=== PATIENT | female | born 1935 | race Caucasian/White ===

== ENCOUNTER 2017-11-09 20:57 | Inpatient (IN) | payer MEDICARE ==
[~2017-11-09] VITALS: Ht 167.6 cm; Wt 55.0 kg
[2017-11-09] MEDS ORDERED: SODIUM CHLORIDE FLUSH 10ML SYR IVF ONE (21:30)
[2017-11-09] MEDS ORDERED: MORPHINE SULFATE 4 MG/ML, 1ML IVPush PRN (21:30)
[2017-11-09] MEDS ORDERED: ONDANSETRON 2MG/ML, 2ML IVPush ONE (21:30)
[2017-11-09 21:46] LABS: BASOPHILS # (AUTO) 0.02 x10^3/uL (0-0.1); BASOPHILS % (AUTO) 0 % (0-1); EOSINOPHILS # (AUTO) 0.06 x10^3/uL (0-0.4); EOSINOPHILS % (AUTO) 1 % (1-7); LYMPHOCYTES # (AUTO) 0.74 x10^3/uL (1-3.4); LYMPHOCYTES % (AUTO) 11 % (22-44); MD NO; MEAN CORPUSCULAR HEMOGLOBIN 29.6 pg (27.0-34.8); MEAN CORPUSCULAR HGB CONC 33.3 g/dL (32.4-35.8); MEAN CORPUSCULAR VOLUME 88.9 fL (80-100); MEAN PLATELET VOLUME 9.1 fL (7.4-10.4); MONOCYTES % (AUTO) 6 % (2-9); NEUTROPHILS # (AUTO) 5.81 x10^3/uL (1.8-6.8); NEUTROPHILS % (AUTO) 83 % (42-75); PLATELET COUNT 233 x10^3/uL (130-400); RED CELL DISTRIBUTION WIDTH 14.4 % (9.6-15.2)
[2017-11-09 21:57] LABS: ALANINE AMINOTRANSFERASE 22 U/L (12-78); ALBUMIN 3.2 g/dL (3.4-5.0); ANION GAP 7 mmol/L (5-15); CALCIUM 8.9 mg/dL (8.5-10.1); CHLORIDE 108 mmol/L (98-107); CREATININE 1.35 mg/dL (0.55-1.02)
[2017-11-09 22:00] LABS: ALKALINE PHOSPHATASE 75 U/L (45-117); BILIRUBIN,TOTAL 0.5 mg/dL (0.2-1.0); TOTAL PROTEIN 7.2 g/dL (6.4-8.2)
[2017-11-09] MEDS ORDERED: ONDANSETRON 2MG/ML, 2ML ONE (22:37)
[2017-11-09] MEDS ORDERED: MORPHINE SULFATE 4 MG/ML, 1ML ONE (22:37)
[2017-11-10] MEDS ORDERED: OXYcodone IR 5MG TABLET PO PRN (01:00)
[2017-11-10] MEDS ORDERED: ENALAPRILAT 1.25 MG/ML, 2ML IVPush PRN (01:00)
[2017-11-10] MEDS ORDERED: ACETAMINOPHEN 325 MG TABLET PO PRN (01:00)
[2017-11-10] MEDS ORDERED: hydrALAzine 20 MG/ML, 1ML IVPush PRN (01:00)
[2017-11-10 01:22] LABS: FREE T4 (FREE THYROXINE) 1.39 ng/dL (0.76-1.46); THYROID STIMULATING HORMONE 3.14 mIU/L (0.358-3.740)
[2017-11-10 01:40] LABS: HEMOGLOBIN A1C 5.5 % (4.2-6.3)
[2017-11-10] MEDS: D5%-0.9% NACL+KCL 20MEQ 1,000 ML IV SCH ×3 (01:56→20:55)
[2017-11-10 05:20] LABS: CULTURE INDICATED? NO; MICROSCOPIC NOT IND
[2017-11-10] MEDS ORDERED: OMNIPAQUE 350 MG/ML, 100ML BOTTLE ONE (06:18)
[2017-11-10 08:14] VITALS: BP 105/63
[2017-11-10 13:01] VITALS: BP 104/71
[2017-11-10 18:57] VITALS: BP 113/68
[2017-11-10] MEDS: ONDANSETRON 2MG/ML, 2ML IVPush PRN (21:13)
[2017-11-10] MEDS: morphine SULFATE 10 MG/ML, 1ML IVPush PRN (21:13)
[2017-11-11 03:00] VITALS: BP 105/65
[2017-11-11] MEDS: morphine SULFATE 10 MG/ML, 1ML IVPush PRN (04:40)
[2017-11-11] MEDS: ONDANSETRON 2MG/ML, 2ML IVPush PRN (04:40)
[2017-11-11] MEDS: D5%-0.9% NACL+KCL 20MEQ 1,000 ML IV SCH (05:03)
[2017-11-11 05:34] LABS: BASOPHILS # (AUTO) 0.04 x10^3/uL (0-0.1); BASOPHILS % (AUTO) 1 % (0-1); EOSINOPHILS # (AUTO) 0.13 x10^3/uL (0-0.4); EOSINOPHILS % (AUTO) 2 % (1-7); LYMPHOCYTES # (AUTO) 1.41 x10^3/uL (1-3.4); LYMPHOCYTES % (AUTO) 26 % (22-44); MD NO; MEAN CORPUSCULAR HEMOGLOBIN 29.4 pg (27.0-34.8); MEAN CORPUSCULAR HGB CONC 33.1 g/dL (32.4-35.8); MEAN CORPUSCULAR VOLUME 88.7 fL (80-100); MEAN PLATELET VOLUME 9.3 fL (7.4-10.4); MONOCYTES # (AUTO) 0.54 x10^3/uL (0.2-0.8); MONOCYTES % (AUTO) 10 % (2-9); NEUTROPHILS # (AUTO) 3.25 x10^3/uL (1.8-6.8); NEUTROPHILS % (AUTO) 61 % (42-75); PLATELET COUNT 198 x10^3/uL (130-400); RED BLOOD COUNT 4.35 x10^6/uL (3.82-5.3); RED CELL DISTRIBUTION WIDTH 13.9 % (9.6-15.2)
[2017-11-11 05:36] LABS: CHLORIDE 113 mmol/L (98-107)
[2017-11-11 05:45] LABS: ALANINE AMINOTRANSFERASE 16 U/L (12-78); ALBUMIN 2.5 g/dL (3.4-5.0); ALKALINE PHOSPHATASE 60 U/L (45-117); ANION GAP 4 mmol/L (5-15); BILIRUBIN,TOTAL 0.3 mg/dL (0.2-1.0); CALCIUM 7.8 mg/dL (8.5-10.1); CHOL/HDL RATIO 2.1; CHOLESTEROL, TOTAL 162 mg/dL (140-239); CREATININE 0.95 mg/dL (0.55-1.02); HDL CHOL % 48 % (28-40); HDL CHOLESTEROL (DIRECT) 78 mg/dL (40-60); LDL CHOLESTEROL,CALCULATED 68 mg/dL (54-169); LDL/HDL RATIO 0.9 (0.5-3.0); TOTAL PROTEIN 5.6 g/dL (6.4-8.2); TRIGLYCERIDES 81 mg/dL (50-200); VLDL CHOLESTEROL 16 mg/dL (0-25)
[2017-11-11 07:11] VITALS: BP 100/56
[2017-11-11 13:34] VITALS: BP 134/60
[2017-11-11 20:31] VITALS: BP 121/70
[2017-11-12 02:00] VITALS: BP 108/62
[2017-11-12 05:28] LABS: ANION GAP 7 mmol/L (5-15); CALCIUM 7.9 mg/dL (8.5-10.1); CHLORIDE 107 mmol/L (98-107); CREATININE 0.88 mg/dL (0.55-1.02)
[2017-11-12 07:26] VITALS: BP 116/72
[2017-11-12 13:11] VITALS: BP 110/60
[2017-11-12] MEDS ORDERED: POLY17PO5 PO (13:26)
== END 2017-11-12 15:28 | disposition home or self-care (01) | DRG 388 ==
LOC: ED 21:51 → EDIP 11-10 00:15 → 4NOR 11-10 01:28
PROVIDERS: ADMIT Internal Medicine; ATTEND Internal Medicine
DX: K56.690 Other partial intestinal obstruction (principal); N17.0 Acute kidney failure with tubular necrosis; E44.0 Moderate protein-calorie malnutrition; Z68.1 Body mass index [BMI] 19.9 or less, adult; K56.2 Volvulus; E87.6 Hypokalemia; K52.9 Noninfective gastroenteritis and colitis, unspecified; K57.90 Diverticulosis of intestine, part unspecified, without perforation or abscess without bleeding; Z87.891 Personal history of nicotine dependence; J02.9 Acute pharyngitis, unspecified; Z88.2 Allergy status to sulfonamides
CPT/HCPCS: 36415; 74177; 74250; 80048; 80053; 80061; 81003; 83036; 83690; 83735; 84100; 84439; 84443; 85025; 96374; 96375; J2405; Q9967; J2270; J3480

== ENCOUNTER 2019-10-01 11:35 | Emergency (ER) | payer MEDICARE ==
[~2019-10-01] VITALS: Ht 162.6 cm; Wt 62.1 kg
[~2019-10-01 11:35] MED LIST: ACET325T14 PO; POLY17PO5 PO; TRAM50TA2 PO
[2019-10-01 11:50] VITALS: BP 123/80
[2019-10-01 12:31] LABS: ALBUMIN 3.6 g/dL (3.4-5.0); ANION GAP 6 mmol/L (5-15); CALCIUM 9.3 mg/dL (8.5-10.1); CHLORIDE 109 mmol/L (98-107)
[2019-10-01 12:43] LABS: BASOPHILS # (AUTO) 0.04 x10^3/uL (0-0.1); BASOPHILS % (AUTO) 1 % (0-1); EOSINOPHILS # (AUTO) 0.12 x10^3/uL (0-0.4); EOSINOPHILS % (AUTO) 2 % (1-7); LYMPHOCYTES # (AUTO) 1.18 x10^3/uL (1-3.4); LYMPHOCYTES % (AUTO) 19 % (22-44); MD NO; MEAN CORPUSCULAR HEMOGLOBIN 29.6 pg (27.0-34.8); MEAN CORPUSCULAR VOLUME 89.7 fL (80-100); MEAN PLATELET VOLUME 9.3 fL (7.4-10.4); MONOCYTES # (AUTO) 0.43 x10^3/uL (0.2-0.8); MONOCYTES % (AUTO) 7 % (2-9); NEUTROPHILS # (AUTO) 4.39 x10^3/uL (1.8-6.8); NEUTROPHILS % (AUTO) 71 % (42-75); PLATELET COUNT 209 x10^3/uL (130-400); RED BLOOD COUNT 4.52 x10^6/uL (3.82-5.3); RED CELL DISTRIBUTION WIDTH 14.4 % (9.6-15.2)
--- NOTE | 2019-10-01 12:43 | NUR ---
PT TO ROOM AT THIS TIME VIA WHEELCHAIR
--- NOTE | 2019-10-01 14:07 | NUR ---
PT ELOPED PRIOR TO RECEIVING WRITTEN DC INSTRUCTIONS.
== END 2019-10-01 14:08 | disposition home or self-care (01) ==
LOC: ED 14:00
DX: R19.7 Diarrhea, unspecified (principal); C76.51 Malignant neoplasm of right lower limb; J44.9 Chronic obstructive pulmonary disease, unspecified; Z87.891 Personal history of nicotine dependence; I45.10 Unspecified right bundle-branch block
CPT/HCPCS: 36415; 80048; 82040; 85025; 93005; 99284

== ENCOUNTER 2020-02-27 18:13 | Emergency (ER) | payer MEDICARE ==
[~2020-02-27] VITALS: Ht 167.6 cm; Wt 135.0 kg
[2020-02-27] MEDS ORDERED: SODIUM CHLORIDE FLUSH 10ML SYR IVF ONE (19:30)
[2020-02-27 19:42] LABS: BASOPHILS # (AUTO) 0.03 x10^3/uL (0-0.1); BASOPHILS % (AUTO) 1 % (0-1); EOSINOPHILS # (AUTO) 0.22 x10^3/uL (0-0.4); EOSINOPHILS % (AUTO) 4 % (1-7); LYMPHOCYTES # (AUTO) 1.25 x10^3/uL (1-3.4); LYMPHOCYTES % (AUTO) 20 % (22-44); MD NO; MEAN CORPUSCULAR HEMOGLOBIN 28.1 pg (27.0-34.8); MEAN CORPUSCULAR HGB CONC 31.5 g/dL (32.4-35.8); MEAN CORPUSCULAR VOLUME 89.1 fL (80-100); MEAN PLATELET VOLUME 8.8 fL (7.4-10.4); MONOCYTES # (AUTO) 0.58 x10^3/uL (0.2-0.8); MONOCYTES % (AUTO) 9 % (2-9); NEUTROPHILS # (AUTO) 4.13 x10^3/uL (1.8-6.8); NEUTROPHILS % (AUTO) 67 % (42-75); PLATELET COUNT 321 x10^3/uL (130-400); RED CELL DISTRIBUTION WIDTH 13.8 % (9.6-15.2)
[2020-02-27 19:51] LABS: ALANINE AMINOTRANSFERASE 26 U/L (12-78); ANION GAP 6 mmol/L (5-15); CHLORIDE 107 mmol/L (98-107); CREATININE 1.36 mg/dL (0.55-1.02)
[2020-02-27 19:53] LABS: ALKALINE PHOSPHATASE 83 U/L (45-117); BILIRUBIN,TOTAL 0.3 mg/dL (0.2-1.0); TOTAL PROTEIN 7.2 g/dL (6.4-8.2)
--- NOTE | 2020-02-27 20:00 | NUR ---
Pt attempted to urinate into bedpan and states she is unable to. Pt straight cathed at this time to obtain urine sample, sent to lab
[2020-02-27 20:13] LABS: MICROSCOPIC NOT IND
--- NOTE | 2020-02-27 20:31 | NUR ---
Pt to CT
--- NOTE | 2020-02-27 21:11 | NUR ---
Pt states she "wants to go home," pt educated on pending results and plan of care at this time
[2020-02-27 21:19] LABS: TROPONIN I < 0.015 ng/mL (0.000-0.045)
--- NOTE | 2020-02-27 21:21 | NUR ---
Pt continues to yell out "get me out of here, i'm fine." Provided education that results are still pending at this time. Comfort of pt ensured, call pearce within reach, VSS
[2020-02-27] MEDS ORDERED: LORazepam 1MG TABLET ONE (21:46)
[2020-02-27] MEDS ORDERED: LORazepam 1MG TABLET PO ONE (22:00)
[2020-02-27 22:04] VITALS: BP 126/88
== END 2020-02-27 22:08 ==
LOC: ED 19:40
DX: G89.11 Acute pain due to trauma (principal); Z20.828 Contact with and (suspected) exposure to other viral communicable diseases; R05 Cough; M54.5 Low back pain; R07.89 Other chest pain; G30.1 Alzheimer's disease with late onset; F02.80 Dementia in other diseases classified elsewhere, unspecified severity, without behavioral disturbance, psychotic disturbance, mood disturbance, and anxiety; R41.82 Altered mental status, unspecified; I45.10 Unspecified right bundle-branch block; J44.9 Chronic obstructive pulmonary disease, unspecified; Z85.00 Personal history of malignant neoplasm of unspecified digestive organ
CPT/HCPCS: 36415; 71250; 72131; 80053; 81003; 84484; 85025; 87635; 93005; 99285

== ENCOUNTER 2021-01-25 22:38 | Emergency (ER) | payer MEDICARE ==
[~2021-01-25] VITALS: Ht 167.6 cm; Wt 57.2 kg
[2021-01-25] MEDS ORDERED: SODIUM CHLORIDE FLUSH 10ML SYR IVF ONE (23:30)
[2021-01-26 00:12] LABS: BASOPHILS % (AUTO) 1 % (0-1); EOSINOPHILS % (AUTO) 3 % (1-7); LYMPHOCYTES % (AUTO) 20 % (22-44); MEAN CORPUSCULAR HGB CONC 33.1 g/dL (32.4-35.8); MONOCYTES % (AUTO) 10 % (2-9); NEUTROPHILS % (AUTO) 66 % (42-75); PLATELET COUNT 229 x10^3/uL (130-400); RED BLOOD COUNT 4.07 x10^6/uL (3.82-5.3); RED CELL DISTRIBUTION WIDTH 14.7 % (9.6-15.2)
[2021-01-26 00:14] LABS: ANION GAP 7 mmol/L (5-15); CALCIUM 8.9 mg/dL (8.5-10.1); CHLORIDE 111 mmol/L (98-107); CREATININE 1.46 mg/dL (0.55-1.02); MD NO
[2021-01-26 00:15] LABS: ALANINE AMINOTRANSFERASE 27 U/L (12-78); ALBUMIN 3.3 g/dL (3.4-5.0)
[2021-01-26 00:17] LABS: ALKALINE PHOSPHATASE 96 U/L (45-117); BILIRUBIN,TOTAL 0.3 mg/dL (0.2-1.0); TOTAL PROTEIN 7.3 g/dL (6.4-8.2)
--- NOTE | 2021-01-26 00:26 | NUR ---
STRAIGHT CATH FOR UA AND WALKED TO LAB. CLEAR YELLOW URINE DRAINED FROM BLADDER
[2021-01-26 01:13] LABS: MICROSCOPIC INDICATED
--- NOTE | 2021-01-26 01:48 | NUR ---
STOOL COLLECTED AND WALKED TO LAB
[2021-01-26 02:49] LABS: CLOSTRIDIUM DIFFICILE ANTIGEN NEGATIVE; CLOSTRIDIUM DIFFICILE TOXIN NEGATIVE (Negative)
[2021-01-26 03:24] VITALS: BP 125/92
== END 2021-01-26 03:26 | disposition home or self-care (01) ==
LOC: ED 22:39
DX: R19.7 Diarrhea, unspecified (principal); N18.9 Chronic kidney disease, unspecified; J44.9 Chronic obstructive pulmonary disease, unspecified
CPT/HCPCS: 36415; 71045; 80053; 81001; 83690; 85025; 87324; 89055; 93005; 99285

== ENCOUNTER 2021-02-16 14:50 | Observation (INO) | payer MEDICARE ==
[~2021-02-16] VITALS: Ht 165.1 cm; Wt 60.7 kg
[2021-02-16] MEDS ORDERED: SODIUM CHLORIDE FLUSH 10ML SYR IVF ONE (17:00)
[2021-02-16] MEDS ORDERED: SODIUM CHLORIDE 0.9% 1,000ML IVBOLUS ONE (17:00)
[2021-02-16] MEDS ORDERED: ONDANSETRON 2MG/ML, 2ML IVPush ONE (17:00)
[2021-02-16] MEDS ORDERED: ONDANSETRON 2MG/ML, 2ML ONE (17:20)
[2021-02-16] MEDS ORDERED: MORPHINE SULFATE 4 MG/ML, 1ML ONE ×2 (17:20→20:34)
[2021-02-16] MEDS: MORPHINE SULFATE 4 MG/ML, 1ML IVPush PRN ×2 (17:43→20:39)
[2021-02-16 18:09] LABS: ALANINE AMINOTRANSFERASE 25 U/L (12-78); ALBUMIN 3.3 g/dL (3.4-5.0); ANION GAP 6 mmol/L (5-15); CALCIUM 8.7 mg/dL (8.5-10.1); CHLORIDE 110 mmol/L (98-107); CREATININE 1.36 mg/dL (0.55-1.02)
[2021-02-16 18:11] LABS: ALKALINE PHOSPHATASE 89 U/L (45-117); BILIRUBIN,TOTAL 0.4 mg/dL (0.2-1.0); TOTAL PROTEIN 7.2 g/dL (6.4-8.2)
[2021-02-16 18:19] LABS: BASOPHILS % (AUTO) 1 % (0-1); EOSINOPHILS % (AUTO) 3 % (1-7); LYMPHOCYTES % (AUTO) 21 % (22-44); MEAN CORPUSCULAR HGB CONC 32.9 g/dL (32.4-35.8); MEAN PLATELET VOLUME 9.7 fL (7.4-10.4); MONOCYTES % (AUTO) 7 % (2-9); NEUTROPHILS % (AUTO) 67 % (42-75); PLATELET COUNT 266 x10^3/uL (130-400); RED BLOOD COUNT 3.88 x10^6/uL (3.82-5.3); RED CELL DISTRIBUTION WIDTH 14.5 % (9.6-15.2)
[2021-02-16] MEDS ORDERED: OMNIPAQUE 350 MG/ML, 100ML BOTTLE ONE (20:03)
[2021-02-16 20:11] LABS: MICROSCOPIC NOT IND
[2021-02-16] MEDS ORDERED: POTASSIUM CHLORIDE 20 MEQ TAB.ER.PRT PO ONE (20:30)
[2021-02-16] MEDS ORDERED: POTASSIUM CHLORIDE 20 MEQ TAB.ER.PRT ONE (20:34)
--- NOTE | 2021-02-16 21:00 | NUR ---
PT RESTING IN BED, PT CONTINUES TO ASK TO [facility]. PT HAS SOME MEMORY ISUES. PT KETURAH SAID THEY WOULD BE BACK WITH MED LIST, DAUGHTER STILL HAVE NOT PROVIDED PT HOME MED LIST.
[2021-02-16] MEDS ORDERED: TEMAZEPAM 15 MG CAPSULE PO PRN (22:00)
[2021-02-16] MEDS ORDERED: ONDANSETRON 2MG/ML, 2ML IVPush PRN (22:00)
[2021-02-16] MEDS ORDERED: DOCUSATE 100 MG CAPSULE PO PRN (22:00)
[2021-02-16] MEDS ORDERED: ACETAMINOPHEN 325 MG TABLET PO PRN (22:00)
[2021-02-16] MEDS ORDERED: SODIUM CHLORIDE 0.9% 1,000 ML IV SCH (22:00)
[2021-02-16] MEDS ORDERED: GUAIFENESIN/DM 200-20MG, 10ML UDC PO PRN (22:00)
[2021-02-16] MEDS ORDERED: BACLOFEN 10 MG TABLET PO PRN (22:00)
[2021-02-16] MEDS ORDERED: hydrALAzine 20 MG/ML, 1ML IVPush PRN (22:00)
--- NOTE | 2021-02-16 22:34 | NUR ---
REPORT TO [facility] FOR ED ROOM [id number]
[2021-02-16 23:18] VITALS: BP 155/96
[2021-02-17 07:04] VITALS: BP 139/85
[2021-02-17] MEDS ORDERED: MAGNESIUM HYDROXIDE 8%, 30ML UDC PO PRN (10:30)
[2021-02-17] MEDS ORDERED: BISACODYL 10 MG SUPP PR SCH (10:30)
[2021-02-17 12:46] VITALS: BP 127/77
[2021-02-17 13:06] LABS: BASOPHILS % (AUTO) 1 % (0-1); EOSINOPHILS % (AUTO) 5 % (1-7); LYMPHOCYTES % (AUTO) 20 % (22-44); MEAN CORPUSCULAR HEMOGLOBIN 28.5 pg (27.0-34.8); MEAN CORPUSCULAR HGB CONC 32.1 g/dL (32.4-35.8); MEAN PLATELET VOLUME 9.7 fL (7.4-10.4); MONOCYTES % (AUTO) 8 % (2-9); NEUTROPHILS % (AUTO) 66 % (42-75); PLATELET COUNT 236 x10^3/uL (130-400); RED BLOOD COUNT 3.73 x10^6/uL (3.82-5.3)
[2021-02-17 13:09] LABS: CHLORIDE 110 mmol/L (98-107)
[2021-02-17 13:28] LABS: ANION GAP 6 mmol/L (5-15); CALCIUM 8.5 mg/dL (8.5-10.1); CREATININE 1.23 mg/dL (0.55-1.02)
== END 2021-02-17 15:55 | disposition home or self-care (01) ==
LOC: ED 20:54 → EDIP 21:14 → INTOOBSV 21:14 → 3N 23:07
PROVIDERS: ADMIT Internal Medicine; ATTEND Hospitalist
DX: R10.9 Unspecified abdominal pain (principal); D64.9 Anemia, unspecified; E87.6 Hypokalemia; E87.8 Other disorders of electrolyte and fluid balance, not elsewhere classified; N18.32 Chronic kidney disease, stage 3b; F03.90 Unspecified dementia, unspecified severity, without behavioral disturbance, psychotic disturbance, mood disturbance, and anxiety; F17.200 Nicotine dependence, unspecified, uncomplicated; Z85.00 Personal history of malignant neoplasm of unspecified digestive organ; Z85.89 Personal history of malignant neoplasm of other organs and systems; Z79.899 Other long term (current) drug therapy
CPT/HCPCS: 36415; 71045; 74177; 80048; 80053; 81003; 83605; 83690; 85025; 87040; 96361; 96374; 96375; 96376; 97161; 99285; G0378; J2270; J2405; J7030; Q9967